=== PATIENT | female | born 1955 | race Caucasian/White ===

== ENCOUNTER → 2018-07-29 | Outpatient (CLI) | payer OTHER | LOC: FIMAGING 13:24 | PROVIDERS: ATTEND Internal Medicine | DX: Z12.31 Encounter for screening mammogram for malignant neoplasm of breast (principal) ==

== ENCOUNTER 2018-08-19 12:33 | Day surgery (SDC) | payer OTHER ==
[2018-08-19] MEDS ORDERED: NALOXONE HCL 0.4 MG/ML INJ IVP PRN (12:35)
[2018-08-19] MEDS ORDERED: fentaNYL 100 MCG/2 ML INJ IVP PRN (12:35)
[2018-08-19] MEDS ORDERED: FLUMAZENIL 0.5 MG/5 ML MDV IVP PRN (12:35)
[2018-08-19] MEDS ORDERED: MIDAZOLAM 2 MG/2 ML VIAL IVP PRN (12:35)
[2018-08-19] MEDS ORDERED: NS 1,000 ML IV SCH (12:45)
[2018-08-19] MEDS ORDERED: MIDAZOLAM 2 MG/2 ML VIAL ONE (14:04)
[2018-08-19] MEDS ORDERED: fentaNYL 100 MCG/2 ML INJ ONE (14:04)
[2018-08-19] MEDS ORDERED: TRIAMCINOLONE ACETONIDE 200 MG/5 ML MDV IM ONE (14:26)
[2018-08-19 14:52] VITALS: BP 109/56
== END 2018-08-19 15:58 | disposition home or self-care (01) ==
LOC: FIMAGING 12:33
PROVIDERS: ATTEND Radiology Vascular & Interventional Radiology
DX: M54.16 Radiculopathy, lumbar region (principal)
CPT/HCPCS: J2250; J3010; J3301